=== PATIENT | male | born 1970 | race Caucasian/White ===

== ENCOUNTER 2016-08-27 10:26 | Observation (INO) | payer BC ==
[2016-08-27] MEDS ORDERED: ONDANSETRON 4 MG/2 ML VIAL IVP STA (10:48)
[2016-08-27] MEDS ORDERED: ASPIRIN 81 MG CHEW PO STA (10:48)
[2016-08-27] MEDS ORDERED: SODIUM CHLORIDE 0.9% 1,000 ML IV STA (10:48)
[2016-08-27] MEDS ORDERED: NITROGLYCERIN OINT 1 INCH/GM PACKET TOPICAL STA (10:48)
[2016-08-27] MEDS ORDERED: MORPHINE SULFATE 4 MG/ML SYRINGE IV STA (10:48)
--- NOTE | 2016-08-27 10:54 | ED ---
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 He denies any nausea no vomiting no cold sweats. He has a history of microvascular hypertension for 20 years but he quit 3 years, no alcohol or drug use. - Related Data Home Medications Medication Instructions Recorded Confirmed ALPRAZolam [Xanax] 0.25 mg PO DAILY PRN 08/27/16 08/27/16 Lisinopril [Prinivil] 10 mg PO DAILY 08/27/16 08/27/16 Pravastatin Sodium [Pravachol] 40 mg PO DAILY 08/27/16 08/27/16 Allergies Allergy/AdvReac Type Severity Reaction Status Date / Time No Known Allergies Allergy Verified 08/27/16 11:09 Review of Systems ROS Statement: Those systems with pertinent positive or pertinent negative responses have been documented in the HPI. ROS Other: All systems not noted in ROS Statement are negative. EKG Findings - EKG Comments: EKG Findings:: EKG is normal sinus rhythm ventricular rate is 81 KS interval is 146 QRS duration is 82 QT/QTc is 374/434 review of this EKG did not reveal any ST elevation or ST depression Past Medical History Past Medical History: Hyperlipidemia, Hypertension History of Any Multi-Drug Resistant Organisms: None Reported Past Psychological History: Anxiety Smoking Status: Former smoker Past Alcohol Use History: None Reported Past Drug Use History: None Reported General Exam - General Exam Comments Initial Comments: General: The patient is awake and alert, in no distress, and does not appear acutely ill. He is quite anxious Skin: Skin is warm and dry and no rashes or lesions are noted. Eye: Pupils are equal, round and reactive to light, extra-ocular movements are intact; there is normal conjunctiva bilaterally. Ears, nose, mouth and throat: There are moist mucous membranes and no oral lesions. Neck: The neck is supple, there is no tenderness Cardiovascular: There is a regular rate and rhythm. No murmur, rub or gallop is appreciated. Respiratory: To auscultation bilateral, no wheezing no rhonchi no distress respiratory rogers noticed Gastrointestinal: Soft, non-distended, non-tender abdomen without masses or organomegaly noted. There is no rebound or guarding present. Bowel sounds are unremarkable. Back: There is no tenderness to palpation in the midline. There is no obvious deformity. Musculoskeletal: Normal ROM, no tenderness, There is no pedal edema. There is no calf tenderness or swelling. No cords were appreciated. Neurological: CN II-XII intact, Cranial nerves III through XII are intact. There are no obvious motor or sensory deficits. Coordination appears grossly intact. Speech is normal. Psychiatric: Cooperative, appropriate mood & affect, normal judgment. Limitations: no limitations Course Vital Signs 08/27/16 08/27/16 10:38 12:50 Temperature 98.5 F 98.6 F Pulse Rate 78 81 Respiratory 18 16 Rate Blood Pressure 145/73 109/64 O2 Sat by Pulse 100 98 Oximetry Critical Care Time Total Critical Care Time: 45 Critical Care Time: Patient was reassessed about 1315 and seen time dictated on his labs and imaging studies his CBC, d-dimer, compressive metabolic panel, EKG are unremarkable chest x-ray is negative as well she continued to have a off-and-on chest pain. Particular region uncooperative in the hospital and heparinized him and will consult cardiology he does have a few risk factors he has smoked for about 20 years and he has a history of for dyslipidemia as well as hypertension Disposition Clinical Impression: Chest pain Disposition: ADMITTED IP TO THIS HOSP Condition: Good Referrals: Weston Cervantes MD [Primary Care Provider] - 1-2 days
[2016-08-27 11:18] LABS: Basophils % (A) 0 %; CH 31.1; CHCM 36.1; Eosinophils # (A) 0.1 k/uL (0-0.7); Eosinophils % (A) 2 %; HDW 2.63; HGB 14.6 gm/dL (13.0-17.5); Luc # (Auto) 0.11; Luc % (Auto) 2; Lymphocytes # (A) 1.3 k/uL (1.0-4.8); Lymphocytes % (A) 21 %; MCH 30.8 pg (25.0-35.0); MCHC 35.6 g/dL (31.0-37.0); MCV 86.4 fL (80.0-100.0); Mean Platelet Volume 7.9; Monocytes # (A) 0.2 k/uL (0-1.0); Monocytes % (A) 4 %; Neutrophils # (A) 4.4 k/uL (1.3-7.7); Neutrophils % (A) 71 %; RBC 4.74 m/uL (4.30-5.90); RDW 12.5 % (11.5-15.5); WBC 6.1 k/uL (3.8-10.6); WBC (Perox) 6.22
--- NOTE | 2016-08-27 11:28 | XR ---
EXAMINATION TYPE: XR chest 2V DATE OF EXAM: 08/27/2016 COMPARISON: NONE TECHNIQUE: PA and lateral views submitted. HISTORY: Chest pain FINDINGS: The lungs are clear and there is no pneumothorax, pleural effusion, or focal pneumonia. IMPRESSION: 1. No acute process.
[2016-08-27 11:29] LABS: Partial Thromboplastin Time 24.2 sec (22.0-30.0); Prothrombin Time 10.1 sec (9.0-12.0)
[2016-08-27 11:47] LABS: ALT 42 U/L (21-72); AST 26 U/L (17-59); Alkaline Phosphatase 90 U/L (38-126); Anion Gap 10 mmol/L; Blood Urea Nitrogen 17 mg/dL (9-20); Calcium 9.1 mg/dL (8.4-10.2); Carbon Dioxide 26 mmol/L (22-30); Chloride 103 mmol/L (98-107); Glucose 107 mg/dL (74-99); Magnesium 1.9 mg/dL (1.6-2.3); Non-African American GFR(MDRD) >60 (>60 ml/min/1.73 sqM); Potassium 4.1 mmol/L (3.5-5.1); Sodium 139 mmol/L (137-145); Total Bilirubin 0.8 mg/dL (0.2-1.3); Total Protein 7.3 g/dL (6.3-8.2)
[2016-08-27 11:49] LABS: Creatine Kinase 233 U/L (55-170)
[2016-08-27 12:02] LABS: Creatine Kinase MB 1.9 ng/mL (0.0-2.4); Troponin I <0.012 ng/mL (0.000-0.034)
[2016-08-27] MEDS ORDERED: NITROGLYCERIN SL TABS 0.4 MG TAB SUBLINGUAL PRN (13:26)
[2016-08-27] MEDS ORDERED: HEPARIN SODIUM,PORCINE 5,000 UNIT/ML 1 ML VIAL IV ONE (13:26)
[2016-08-27] MEDS ORDERED: MORPHINE SULFATE 2 MG/ML SYRINGE IVP PRN (13:32)
[2016-08-27] MEDS ORDERED: ALPRAZolam 0.25 MG TAB PO PRN (13:36)
[2016-08-27] MEDS ORDERED: SODIUM CHLORIDE 0.9% 1,000 ML IV SCH (13:45)
[2016-08-27] MEDS ORDERED: HEPARIN SODIUM,PORCINE/D5W PMX 25,000 UNIT in DEXTROSE/WATER 1 500ML.BAG IV SCH (13:45)
[2016-08-27] MEDS ORDERED: KETOROLAC 30 MG/ML 1 ML VIAL IVP STA (16:05)
--- NOTE | 2016-08-27 16:10 | P.HPIM ---
History of Present Illness H&P Date: 08/27/16 Chief Complaint: Chest pain This is a 45-year-old gentleman with previous history of tobacco use and no other past medical history: Patient to the hospital with complaints of chest pain that started this morning. 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 States that he noted left-sided chest pain that started this morning was sharp in description about 46 out of 10 in intensity radiating to the left upper extremity lasted less than a few minutes each time. Patient was not able to describe any alleviating or exacerbating factors. Patient came to the emergency room as patient does have significant family history of coronary disease including father who had a heart attack at the age of 30. EKG in the emergency room does not reveal ST-T wave changes appears within normal limits Initial cardiac enzyme was negative. 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 LIVES IN A 2 STORY HOME WITH HIS AND 2 KIDS, 1 DOG. HAS 2 STEPS TO ENTER HOME AND 12 TO REACH 2ND FLOOR. NO SERVICE. 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 NO OUTSIDE SERVICES RECIEVED. NO MEDICAL EQUIPMENT. Smoking Status: Former smoker Past Alcohol Use History: None Reported Additional Past Alcohol Use History / Comment(s): STARTED SMOKING AGE 18 SMOKED 1 PPD, QUIT 2014 Past Drug Use History: None Reported - Past Family History Mother Family Medical History: Diabetes Mellitus, Osteoarthritis (OA) Father Family Medical History: Liver Disease, Myocardial Infarction (LA) Additional Family Medical History / Comment(s): LIVER FAILURE, HEART DISEASE Medications and Allergies Home Medications Medication Instructions Recorded Confirmed Type ALPRAZolam [Xanax] 0.25 mg PO DAILY PRN 08/27/16 08/27/16 History Lisinopril [Prinivil] 10 mg PO DAILY 08/27/16 08/27/16 History Pravastatin Sodium [Pravachol] 40 mg PO DAILY 08/27/16 08/27/16 History Allergies Allergy/AdvReac Type Severity Reaction Status Date / Time No Known Allergies Allergy Verified 08/27/16 11:09 Physical Exam Vitals: Vital Signs Temp Pulse Pulse Resp BP BP Pulse Ox 08/27/16 15:31 98 08/27/16 14:30 97.5 F L 72 16 106/62 98 08/27/16 14:13 98.1 F 75 18 109/64 100 08/27/16 12:50 98.6 F 81 16 109/64 98 08/27/16 10:38 98.5 F 78 18 145/73 100 Intake and Output 08/27/16 08/27/16 08/27/16 06:59 14:59 22:59 Other: Voiding Method Toilet Weight 90 kg Patient Weight 08/28/16 06:59 Weight 90 kg Physical exam Gen. appearance oriented 3 in no distress Neck is supple no JVD Lungs good air entry clear to auscultation no rhonchi or wheezing Heart S1-S2 heard regular rate and rhythm no murmurs appreciated . Reproducible chest pain. No reproducibility with left shoulder range of motion against resistance Abdomen is soft nontender no organomegaly bowel sounds are intact Neurologically cranial nerves II-12 grossly intact no focal motor or sensory deficits noted Skin no abnormalities appreciated Results CBC & Chem 7: 08/27/16 11:05 08/27/16 11:05 Labs: Abnormal Lab Results - Last 24 Hours (Table) 08/27/16 08/27/16 Range/Units 11:05 11:05 Glucose 107 H (74-99) mg/dL Total Creatine Kinase 233 H (55-170) U/L Assessment and Plan Plan: #1 atypical chest pain likely musculoskeletal in nature #2 history of anxiety #3 previous history of tobacco use Plan Discontinue IV heparin. We'll give the patient a dose of IV Toradol 30 mg Patient is symptom-free cardiac enzymes 3 will be done Echocardiogram will be done to rule out wall motion abnormalities cardiology consultation will maintain In regards to anxiety and did discuss with the patient would benefit from SSRi to prevent excessive worrying and discussed having someone to talk about his multiple issues including a roman catholic member or friend We'll likely discharge the patient home in the next 24 hours
[2016-08-27 17:16] LABS: Creatine Kinase 188 U/L (55-170)
[2016-08-27 17:28] LABS: Creatine Kinase MB 1.4 ng/mL (0.0-2.4); Troponin I <0.012 ng/mL (0.000-0.034)
[2016-08-27] MEDS ORDERED: ACETAMINOPHEN TAB 325 MG TAB PO PRN (20:11)
[2016-08-27] MEDS ORDERED: ATORVASTATIN 40 MG TAB PO SCH (21:00)
--- NOTE | 2016-08-27 21:12 | CONS ---
DATE OF CONSULTATION: Mr. Martin is a 45-year-old male with known history of hypertension, hyperlipidemia, and prior history of smoking as well as family history of coronary artery disease, who presented with left-sided chest discomfort. 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 The discomfort was on and off lasting for a few seconds. He is usually quite active physically without any associated symptoms. He denies any exertional dyspnea or chest discomfort with activity. He has no history of PND, orthopnea, or peripheral edema. No dizziness, palpitation or syncope. His coronary risk factors are remarkable for the history of hypertension, hyperlipidemia, and a family history of coronary artery disease. He stopped smoking about 2 years ago. His medications at home include: 1. Pravastatin 40 mg daily. 2. Lisinopril 10 mg daily. 3. Xanax on a p.r.n. basis. REVIEW OF SYSTEMS: RESPIRATORY SYSTEM: He has no recent wheezing. No cough. No history of obstructive lung disease. GI system: No history of gastrointestinal bleeding. No peptic ulcer disease. system: No dysuria or hematuria. Nervous system: No stroke or seizure. PHYSICAL EXAMINATION: He is a 45-year-old male, alert, oriented, in no apparent distress. Blood pressure 106/60 with a heart rate in the 70s. HEAD: Normocephalic. EYES: Sclerae anicteric. NECK: Good upstroke. No bruit. No jugular venous distention. LUNGS: Clear to auscultation. HEART: Regular rate rhythm. S1, S2, no S3, no rub. ABDOMEN: Soft, nontender, positive bowel sounds. No organomegaly. EXTREMITIES: No edema. Intact distal pulses. Lab data revealed troponin less than 0.0120, BUN, creatinine 17 and 1.02. Potassium 4.1. Hemoglobin of 14.6. EKG reveals sinus mechanism, normal axis and intervals normal. Normal electrocardiogram. Chest x-ray shows no infiltrate. IMPRESSION: 1. Chest discomfort of unclear etiology in a patient with multiple risk factors. 2. History of hypertension. 3. Hyperlipidemia. 4. Family history of premature coronary disease. RECOMMENDATION: We will follow the cardiac enzymes. If there is no acute changes and he is pain free then I will proceed with stress echocardiogram at the same time we will obtain transthoracic echo and depending on results of testing, further recommendation will be made. Thank you for this consult. We will follow with you.
[2016-08-28 00:06] LABS: Creatine Kinase 152 U/L (55-170)
[2016-08-28 00:18] LABS: Troponin I <0.012 ng/mL (0.000-0.034)
[2016-08-28 06:58] LABS: Cholesterol 175 mg/dL (<200); Triglycerides 81 mg/dL (<150)
[2016-08-28 08:57] VITALS: RESP 16
[2016-08-28] MEDS ORDERED: ASPIRIN 325 MG TAB PO SCH (09:00)
[2016-08-28] MEDS ORDERED: PRAVASTATIN SODIUM 40 MG TAB PO SCH (09:00)
[2016-08-28] MEDS ORDERED: LISINOPRIL 10 MG TAB PO SCH (09:00)
[2016-08-28 10:53] LABS: HDL Cholesterol 42 mg/dL (40-60)
--- NOTE | 2016-08-28 11:23 | ECHOF ---
Referral Reason:chest pain MEASUREMENTS -------- HEIGHT: 177.8 cm WEIGHT: 89.8 kg BP: 106/62 RVIDd: 3.4 cm (< 3.3) IVSd: 1.2 cm (0.6 - 1.1) LVIDd: 4.5 cm (3.9 - 5.3) LVPWd: 1.4 cm (0.6 - 1.1) IVSs: 1.8 cm LVIDs: 2.9 cm LVPWs: 1.7 cm LAESV Index (A-L): 15.49 ml/m Ao Diam: 3.8 cm (2.0 - 3.7) AV Cusp: 1.4 cm (1.5 - 2.6) LA Diam: 3.6 cm (2.7 - 3.8) MV EXCURSION: 18.048 mm (> 18.000) MV EF SLOPE: 118 mm/s (70 - 150) EPSS: 0.5 cm MV E Lavon: 0.69 m/s MV DecT: 266 ms MV A Lavon: 0.88 m/s MV E/A Ratio: 0.79 AV maxP.65 mmHg AV meanP.25 mmHg RAP: 5.00 mmHg RVSP: 18.28 mmHg FINDINGS -------- Sinus rhythm. This was a technically adequate study. There is mild concentric left ventricular hypertrophy. Overall left ventricular systolic function is normal with, an EF between 60 - 65 %. The right ventricle is normal in size and function. Normal LA size by volume 22+/-6 ml/m2. The right atrium is normal in size. Aortic valve is trileaflet and is moderately thickened. There is moderate aortic valve sclerosis. There is no evidence of aortic regurgitation. There is no evidence of aortic stenosis. The mitral valve leaflets are mildly thickened. There is trace to mild mitral regurgitation. Trace tricuspid regurgitation present. There is no evidence of pulmonary hypertension. The right ventricular systolic pressure, as measured by Doppler, is 18.28mmHg. The pulmonic valve is normal. The aortic root size is normal. IVC Not well visulized. The pericardium is normal. There is no pericardial effusion. CONCLUSIONS -------- 1. Sinus rhythm. 2. The right ventricular systolic pressure, as measured by Doppler, is 18.28mmHg. 3. The aortic root size is normal. 4. IVC Not well visulized. 5. There is no pericardial effusion. 6. There is mild concentric left ventricular hypertrophy. 7. Overall left ventricular systolic function is normal with, an EF between 60 - 65 %. 8. Normal LA size by volume 22+/-6 ml/m2. 9. Aortic valve is trileaflet and is moderately thickened. 10. The mitral valve leaflets are mildly thickened. 11. There is trace to mild mitral regurgitation. 12. Trace tricuspid regurgitation present. 13. There is no evidence of pulmonary hypertension. SHOVEL LOADER OPERATOR: Zheng Zambrano RDCS
--- NOTE | 2016-08-28 11:33 | PN ---
Mr. Martin is a 45-year-old male with a history of hypertension, hyperlipidemia, prior history of smoking, presented with symptoms of chest discomfort. He is feeling well this morning. He has no symptoms of chest pain. His breathing has been stable. He denies any dizziness or palpitation. He continues to be on aspirin, lisinopril 10 mg daily, pravastatin 40 mg daily. PHYSICAL EXAMINATION: Blood pressure running in the 90s with the heart rate in the 70s. LUNGS: Clear. HEART: Regular rate and rhythm. S1 and S2, no S3, no rub. ABDOMEN: Soft, nontender. EXTREMITIES: No edema. Lab data revealed a troponin less than 0.012 for 3 samples. IMPRESSION: 1. Chest discomfort of unclear etiology in a patient with multiple risk factors. 2. Hypertension. 3. Hyperlipidemia. 4. Family history of coronary artery disease. RECOMMENDATION: Will proceed with a stress test today. If there is no evidence of inducible ischemia, then no further cardiac work-up will be needed.
[2016-08-28 12:12] VITALS: BP 101/64; PULSE 77; TEMP 97.9
--- NOTE | 2016-08-30 12:10 | ECHOS ---
DATE OF SERVICE: 08/28/2016 AGE: 45Y SEX: M HT: 72 WT: 198 lbs. Protocol Delgado: X Others: Stress Echo Stage: III Dur. of Exercise: 8 minutes *Heart Rate Blood Pressure *Rest: 90 Rest: 113/59 * *Max. Achieved: 158 Maximum BP: 147/56 85% PMHR: 149 100% PMHR: 175 *METS: 8.1 INDICATIONS: Chest pain. MEDICATIONS: Pravastatin, Xanax, lisinopril. Patient was exercised for a total period of 8 minutes. A peak heart rate of 158 was achieved. Maximum blood pressure 152/66 mmHg was noted. Resting EKG shows normal sinus rhythm with normal FL interval and QRS duration and normal ST-T waves. No ST segment depression suggestive of ischemia is noted. The baseline echocardiographic images reveal normal left ventricular chamber size with normal left ventricular systolic function. In the immediate postexercise period, normal increase in the wall thickness and contractility is noted. FINAL IMPRESSION: 1. This stress echocardiographic study is negative for stress-induced ischemia. 2. EKG portion of the stress is not suggestive of ischemia. 3. The patient's exercise tolerance is average.
== END 2016-08-28 16:01 | disposition home or self-care (01) ==
LOC: EC 10:26 → 3OBS 13:26
PROVIDERS: ADMIT Hospitalist; ATTEND Hospitalist
DX: R07.89 Other chest pain (principal); F41.9 Anxiety disorder, unspecified; I10 Essential (primary) hypertension; Z87.891 Personal history of nicotine dependence; E78.5 Hyperlipidemia, unspecified; Z82.49 Family history of ischemic heart disease and other diseases of the circulatory system; M19.90 Unspecified osteoarthritis, unspecified site; Z79.899 Other long term (current) drug therapy; Z83.3 Family history of diabetes mellitus
CPT/HCPCS: 96361 ×4; 96376 ×2; 99291 ×2; 96365; 96366 ×2; 96375; 36415; 93005; 93017; 93306; 93350; 85379; 80061; 80053; 82550; 82553; 83735; 84484; 85025; 85610; 85730; 71020; G0378 ×2; J1644 ×2; J1885